=== PATIENT | female | born 1985 | race Caucasian/White ===

== ENCOUNTER 2022-07-02 11:40 | Emergency (ER) | payer BC, OTHER ==
[2022-07-02] MEDS ORDERED: Lidocaine 1% 10 ML MDV INJECT ONE (12:14)
[2022-07-02] MEDS ORDERED: Diphtheria,Pertussis(Acell),Tetanus Vaccine 0.5 ML Syringe IM ONE (12:14)
[2022-07-02] MEDS ORDERED: Lidocaine 1% 10 ML MDV ONE (13:46)
== END 2022-07-02 15:08 | disposition home or self-care (01) ==
LOC: JD.ED 11:40
DX: S51.812A Laceration without foreign body of left forearm, initial encounter (principal); Z23 Encounter for immunization; W26.8XXA Contact with other sharp object(s), not elsewhere classified, initial encounter
CPT/HCPCS: 12006; 90471; 99282-25